=== PATIENT | female | born 1940 | race Caucasian/White ===

== ENCOUNTER 2019-10-14 07:41 | Observation (INO) | payer MEDICARE ==
[2019-10-14] MEDS ORDERED: ASPIRIN 81 MG PO STA (08:03)
[2019-10-14] MEDS ORDERED: NITROGLYCERIN SL TABS 0.4 MG TAB SUBLINGUAL STA (08:04)
--- NOTE | 2019-10-14 08:09 | ED ---
Chest Pain HPI - General Chief Complaint: Chest Pain Stated Complaint: Chest pain Time Seen by Provider: 10/14/19 07:50 Source: patient, family Mode of arrival: wheelchair Limitations: no limitations - History of Present Illness Initial Comments: This is a 78-year-old female with a history consistent only of hypothyroidism who states for the past 4 days she's been having intermittent chest pain states that 4 days ago she had retrosternal chest discomfort Sweeney heartburn was perhaps 7/10 severity with some radiation on the left arm that went away and then over the next subsequent 2 days she felt fairly well until this morning when she woke up and she had again midsternal and epigastric type burning pain 7/10 severity radiating down her left arm other symptoms reported with it no shortness of breath fevers chills nausea vomiting or sweats. She has no prior history of heart or lung disease no prior history of gastrointestinal disorders. She states she's currently 7/10 in severity at rest. MD Complaint: chest pain - Related Data Allergies Allergy/AdvReac Type Severity Reaction Status Date / Time No Known Allergies Allergy Verified 10/14/19 07:45 Review of Systems ROS Statement: Those systems with pertinent positive or pertinent negative responses have been documented in the HPI. ROS Other: All systems not noted in ROS Statement are negative. EKG Findings - EKG Results: EKG: interpreted by SHAHID, sinus rhythm (Sinus rhythm rate is 62 [place] interval 172 QRS 84 QT since QTC 382/387 sinus arrhythmia noted no acute ST-T wave changes) Past Medical History Past Medical History: Thyroid Disorder History of Any Multi-Drug Resistant Organisms: None Reported Past Surgical History: No Surgical Hx Reported Past Psychological History: No Psychological Hx Reported Smoking Status: Never smoker Past Alcohol Use History: Occasional Past Drug Use History: None Reported General Exam - General Exam Comments Initial Comments: This is a well-developed well-nourished awake alert oriented 3 female Limitations: no limitations General appearance: alert, anxious Head exam: Present: atraumatic, normocephalic, normal inspection Eye exam: Present: normal appearance, PERRL, EOMI. Absent: scleral icterus, conjunctival injection, periorbital swelling ENT exam: Present: normal exam, mucous membranes moist Neck exam: Present: normal inspection. Absent: tenderness, meningismus, lymphadenopathy Respiratory exam: Present: normal lung sounds bilaterally. Absent: respiratory distress, wheezes, rales, rhonchi, stridor Cardiovascular Exam: Present: regular rate, normal rhythm, normal heart sounds. Absent: systolic murmur, diastolic murmur, rubs, gallop, clicks GI/Abdominal exam: Present: soft, normal bowel sounds. Absent: distended, tenderness, guarding, rebound, rigid Extremities exam: Present: normal inspection, full ROM, normal capillary refill. Absent: tenderness, pedal edema, joint swelling, calf tenderness Back exam: Present: normal inspection Neurological exam: Present: alert, oriented X3, CN II-XII intact Psychiatric exam: Present: normal affect, normal mood Skin exam: Present: warm, dry, intact, normal color. Absent: rash Course Vital Signs 10/14/19 07:46 Temperature 97.8 F Pulse Rate 62 Respiratory 18 Rate Blood Pressure 147/67 O2 Sat by Pulse 97 Oximetry - Reevaluation(s) Reevaluation #1: 10/14/19 09:13 She get marked improvement with the nitroglycerin. Pain Chest Pain MDM - MDM I did review the imaging and report no acute findings. Patient does have medical evidence of angina she does have resolution after nitroglycerin she will be admitted I did discuss this with her family as well as Dr. Craig Critical Care Time Critical Care Time: Yes Disposition Clinical Impression: Unstable angina pectoris, Chest pain Disposition: [facility] Condition: Stable Referrals: Grupo Stearns MD [Primary Care Provider] - 1-2 days
[2019-10-14 08:22] LABS: Basophils # (A) 0.1 k/uL (0-0.2); Basophils % (A) 1 %; Eosinophils # (A) 0.2 k/uL (0-0.7); Eosinophils % (A) 3 %; HCT 40.7 % (34.0-46.0); HGB 13.3 gm/dL (11.4-16.0); Lymphocytes # (A) 1.5 k/uL (1.0-4.8); Lymphocytes % (A) 19 %; MCH 29.9 pg (25.0-35.0); MCHC 32.7 g/dL (31.0-37.0); MCV 91.5 fL (80.0-100.0); Mean Platelet Volume 7.3; Monocytes # (A) 0.5 k/uL (0-1.0); Monocytes % (A) 6 %; Neutrophils # (A) 5.6 k/uL (1.3-7.7); Neutrophils % (A) 70 %; Platelet Count 211 k/uL (150-450); RBC 4.44 m/uL (3.80-5.40); RDW 11.9 % (11.5-15.5); WBC 8.1 k/uL (3.8-10.6)
[2019-10-14 08:31] LABS: Albumin 4.1 g/dL (3.5-5.0); Calcium 8.9 mg/dL (8.4-10.2); Magnesium 2.2 mg/dL (1.6-2.3); Potassium 4.2 mmol/L (3.5-5.1); Total Bilirubin 0.7 mg/dL (0.2-1.3); Total Protein 6.9 g/dL (6.3-8.2)
--- NOTE | 2019-10-14 08:35 | XR ---
EXAMINATION TYPE: XR chest 2V DATE OF EXAM: 10/14/2019 HISTORY: Chest Pain. REFERENCE: NONE. FINDINGS: Lung volumes are prominent. There is opacity silhouetting the right heart border which may represent atelectasis in the right middle lobe. There is some atelectasis in the left lower lung. Ple ural spaces appear clear. IMPRESSION: 1. COPD. 2. I CANNOT EXCLUDE ATELECTASIS OF THE RIGHT MIDDLE LOBE.
[2019-10-14 08:38] LABS: INR 0.9 (<1.2); Partial Thromboplastin Time 22.7 sec (22.0-30.0); Prothrombin Time 9.6 sec (9.0-12.0)
[2019-10-14] MEDS ORDERED: SODIUM CHLORIDE 0.9% 500 ML 500 ML IV STA (09:02)
[2019-10-14] MEDS ORDERED: NITROGLYCERIN OINT 1 INCH/GM PACKET TOPICAL STA (09:02)
[2019-10-14] MEDS ORDERED: HEPARIN SODIUM,PORCINE 5,000 UNIT/ML 1 ML VIAL IV ONE (09:02)
[2019-10-14] MEDS ORDERED: HEPARIN SODIUM,PORCINE 5,000 UNIT/ML 1 ML VIAL IV PRN (09:02)
[2019-10-14] MEDS ORDERED: NITROGLYCERIN SL TABS 0.4 MG TAB SUBLINGUAL PRN (09:15)
[2019-10-14] MEDS ORDERED: HEPARIN SOD,PORK IN 0.45% NACL 25,000 UNIT in 0.45% NACL 1 250ML.BAG IV SCH (09:15)
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
[2019-10-14] MEDS ORDERED: ACETAMINOPHEN TAB 325 MG TAB PO STA (20:47)
[2019-10-14] MEDS ORDERED: ATORVASTATIN 40 MG TAB PO SCH (21:00)
[2019-10-15] MEDS ORDERED: AMINOPHYLLINE 500 MG/20 ML VIAL IV PRN (08:17)
[2019-10-15] MEDS ORDERED: DIPYRIDAMOLE IV ONE (08:17)
[2019-10-15] MEDS ORDERED: CAFFEINE CITRATE 60 MG/3 ML VIAL IV PRN (08:17)
[2019-10-15] MEDS ORDERED: SODIUM CHLORIDE 0.9% IV ONE (08:17)
[2019-10-15 08:37] LABS: Basophils % (A) 1 %; Eosinophils # (A) 0.2 k/uL (0-0.7); Eosinophils % (A) 2 %; HCT 38.9 % (34.0-46.0); HGB 12.3 gm/dL (11.4-16.0); Lymphocytes # (A) 2.1 k/uL (1.0-4.8); Lymphocytes % (A) 32 %; MCH 29.4 pg (25.0-35.0); MCHC 31.6 g/dL (31.0-37.0); MCV 92.9 fL (80.0-100.0); Mean Platelet Volume 7.5; Monocytes # (A) 0.4 k/uL (0-1.0); Monocytes % (A) 6 %; Neutrophils # (A) 3.7 k/uL (1.3-7.7); Neutrophils % (A) 57 %; Platelet Count 206 k/uL (150-450); RBC 4.18 m/uL (3.80-5.40); RDW 11.9 % (11.5-15.5); WBC 6.6 k/uL (3.8-10.6)
[2019-10-15] MEDS ORDERED: FAMOTIDINE 20 MG TAB PO SCH (09:00)
[2019-10-15] MEDS ORDERED: ASPIRIN 325 MG TAB PO SCH (09:00)
[2019-10-15 09:13] LABS: Cholesterol 102 mg/dL (<200); HDL Cholesterol 54 mg/dL (40-60); LDL Cholesterol,Calculated 32 mg/dL (0-99); Triglycerides 78 mg/dL (<150)
--- NOTE | 2019-10-15 09:51 | P.PN ---
Subjective This is a pleasant 79-year-old female past medical history significant for arthritis and hypothyroidism. She has seen and examined resting comfortably in bed with family at the bedside. She has had no further symptoms of chest discomfort. She denies shortness of breath, dizziness or palpitations. Blood pressure 127/67 heart rate 60 afebrile maintaining oxygen saturation on room air. Laboratory data reviewed, CBC unremarkable, cardiac enzymes negative 3, LDL 32. Currently maintained on heparin infusion, atorvastatin 40 mg daily and aspirin 325 mg daily. GENERAL: Well-appearing, well-nourished and in no acute distress. NECK: Supple without JVD or thyromegaly. LUNGS: Breath sounds clear to auscultation bilaterally. Respiration equal and unlabored. No wheezes, rales or rhonchi. HEART: Regular rate and rhythm without murmurs, rubs or gallops. S1 and S2 heard. EXTREMITIES: Normal range of motion, no edema. No clubbing or cyanosis. Peripheral pulses intact. ASSESSMENT Chest pain, atypical. An acute coronary event has been ruled out. Hypothyroidism PLAN An acute event has been ruled out. Decrease aspirin to 81 mg daily. Discontinue heparin infusion. Proceed with echocardiogram and persantine stress test as previously discussed. If stress test is abnormal we will consider coronary angiography. Nurse Practitioner note has been reviewed, I agree with a documented findings and plan of care. Patient was seen and examined. Objective - Vital Signs Vital signs: Vital Signs Temp 97.4 F L 10/15/19 07:25 Pulse 60 10/15/19 08:00 Resp 18 10/15/19 08:00 BP 127/67 10/15/19 07:25 Pulse Ox 98 10/15/19 07:25 Intake & Output 10/14/19 10/15/19 10/15/19 18:59 06:59 18:59 Intake Total 541.174 Balance 541.174 Weight 55.792 kg 62 kg Intake: Amount of Fluid Infused ( 500 ml) Intake, IV Titration 41.174 Amount Heparin Sod,Pork in 0.45% 41.174 NaCl 25,000 unit In 0.45 % NaCl 1 250ml.bag @ 12 UNITS/KG/HR 6.695 mls/hr IV .Q24H SOREN Rx#: [id number] Other: Voiding Method Toilet Toilet Toilet # Voids 2 1 - Labs CBC & Chem 7: 02/03/20 07:52 10/14/19 08:06 Labs: Abnormal Lab Results - Last 24 Hours (Table) 10/14/19 10/15/19 Range/Units 14:49 07:52 APTT 52.0 H 38.5 H (22.0-30.0) sec
[2019-10-15] MEDS ORDERED: AMINOPHYLLINE 250 MG/10 ML VIAL IV ONE (11:35)
[2019-10-15 12:16] VITALS: BP 155/67; PULSE 63; RESP 17; TEMP 97.6
--- NOTE | 2019-10-15 12:40 | EST ---
EXERCISE STRESS AGE: 79 SEX: F HT: 66" WT: 136 PROTOCOL: Persantine Cardiolite Stress test HEART RATE REST: 59 BLOOD PRESSURE REST: 158/90 MAXIMUM HEART RATE ACHIEVED: 92 MAXIMUM BLOOD PRESSURE: 168/76 85% MPHR: 120 100% MPHR: 141 INDICATIONS: Chest pain. CLINICAL INFORMATION: Baseline EKG revealed normal sinus rhythm without significant ST-T changes. With Persantine administration, the patient did not have any significant symptoms. Heart rate changed from 59-92 beats per minute, blood pressure changed from 150/90 to 168/76, and came back to baseline. There were no significant ST-segment changes to indicate ischemia. By EKG criteria, this is an unremarkable Lexiscan stress test. The nuclear scan results which are more pertinent will be reported by the radiologist. SELINA / KOFFIN: [id number] /
--- NOTE | 2019-10-15 13:24 | NM ---
EXAMINATION TYPE: NM stress persantine cardiolit DATE OF EXAM: 10/15/2019 COMPARISON: NONE HISTORY: Chest pain TECHNIQUE: After the intravenous administration of 10.56 mCi Tc 99m Sestamibi - Cardiolite resting S PECT images acquired 55 minutes post injection. The patient received 35.3 mg Persantine, 26.4 mCi Tc 99m Sestamibi - Stress images obtained 45 minute s post injection FINDINGS: Review of stress and rest SPECT images demonstrates no distinct perfusion abnormality. Gated analysi s shows normal wall motion with an estimated left ventricular ejection fraction of 64 %. TID is calcu lated at 1.13. IMPRESSION: No scintigraphic evidence for reversible ischemia.
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
[2019-10-16] MEDS ORDERED: ASPIRIN 81 MG PO SCH (09:00)
--- NOTE | 2019-10-16 10:34 | ECHOF ---
Referral Reason:chest pain MEASUREMENTS -------- HEIGHT: 167.6 cm WEIGHT: 61.7 kg BP: 129/70 RVIDd: 3.1 cm (< 3.3) IVSd: 1.1 cm (0.6 - 1.1) LVIDd: 3.6 cm (3.9 - 5.3) LVPWd: 1.0 cm (0.6 - 1.1) IVSs: 1.3 cm LVIDs: 2.0 cm LVPWs: 1.5 cm LAESV Index (A-L): 25.03 ml/m Ao Diam: 2.6 cm (2.0 - 3.7) AV Cusp: 2.0 cm (1.5 - 2.6) LA Diam: 2.8 cm (2.7 - 3.8) MV EXCURSION: 13.874 mm (> 18.000) MV EF SLOPE: 103 mm/s (70 - 150) EPSS: 0.4 cm MV E Warren: 0.61 m/s MV DecT: 259 ms MV A Warren: 0.70 m/s MV E/A Ratio: 0.87 AR PHT: 518 ms RAP: 5.00 mmHg RVSP: 31.98 mmHg FINDINGS -------- Sinus rhythm. This was a technically good study. The left ventricular size is normal. There is borderline concentric left ventricular hypertrophy. Overall left ventricular systolic function is normal with, an EF between 55 - 60 %. The diastolic filling pattern is normal for the age of the patient 9.65. The right ventricle is normal in size. Normal LA size by volume 22+/-6 ml/m2. The right atrial size is normal. Mobile interatrial septum. The aortic valve is trileaflet and appears structurally normal. Trace to mild aortic regurgitation. There is no evidence of aortic stenosis. Mild mitral annular calcification present. Mild mitral regurgitation is present. Mild tricuspid regurgitation present. There is borderline pulmonary artery hypertension. The righ t ventricular systolic pressure, as measured by Doppler, is 31.98mmHg. There is no pulmonic regurgitation present. The aortic root size is normal. Normal inferior vena cava with normal inspiratory collapse consistent with estimated right atrial pre ssure of 5 mmHg. There is no pericardial effusion. CONCLUSIONS -------- 1. Sinus rhythm. 2. This was a technically good study. 3. The left ventricular size is normal. 4. There is borderline concentric left ventricular hypertrophy. 5. Overall left ventricular systolic function is normal with, an EF between 55 - 60 %. 6. The diastolic filling pattern is normal for the age of the patient 9.65 7. The right ventricle is normal in size. 8. Normal LA size by volume 22+/-6 ml/m2. 9. The right atrial size is normal. 10. Mobile interatrial septum. 11. The aortic valve is trileaflet and appears structurally normal. 12. Trace to mild aortic regurgitation. 13. There is no evidence of aortic stenosis. 14. Mild mitral annular calcification present. 15. Mild mitral regurgitation is present. 16. Mild tricuspid regurgitation present. 17. There is borderline pulmonary artery hypertension. 18. The right ventricular systolic pressure, as measured by Doppler, is 31.98mmHg. 19. There is no pulmonic regurgitation present. 20. The aortic root size is normal. 21. Normal inferior vena cava with normal inspiratory collapse consistent with estimated right atrial pressure of 5 mmHg. 22. There is no pericardial effusion. SEAM RUBBER: Marcia Waters RDCS
== END 2019-10-15 14:30 | disposition home or self-care (01) ==
LOC: EC 07:41 → 1SOBS 09:15
PROVIDERS: ADMIT Internal Medicine; ATTEND Internal Medicine
DX: I20.0 Unstable angina (principal); E03.9 Hypothyroidism, unspecified; M15.9 Polyosteoarthritis, unspecified; J44.9 Chronic obstructive pulmonary disease, unspecified; I08.1 Rheumatic disorders of both mitral and tricuspid valves; I27.20 Pulmonary hypertension, unspecified; Z87.828 Personal history of other (healed) physical injury and trauma; Z87.820 Personal history of traumatic brain injury; Z79.890 Hormone replacement therapy; Z79.899 Other long term (current) drug therapy; Z98.890 Other specified postprocedural states; Z87.891 Personal history of nicotine dependence; Z81.8 Family history of other mental and behavioral disorders; Z84.1 Family history of disorders of kidney and ureter
CPT/HCPCS: 93005 ×2; 96366 ×2; 96376; 96365; 99285; 36415; 93017; 93306; 83880; 80061; 80053; 82550; 83735; 84484; 85025 ×2; 85610; 85730 ×2; 71046; 78452; G0378 ×2; A9500; J1644 ×2; J1245; J0280

== ENCOUNTER → 2021-04-16 | Outpatient (CLI) | payer MEDICARE ==
--- NOTE | 2021-04-16 16:12 | ECHOS ---
STRESS ECHOCARDIOGRAM DATE OF SERVICE: 04/16/21 INDICATIONS: Chest pain. BASELINE HEART RATE: 65 BASELINE BLOOD PRESSURE: 141/56 MAXIMUM HEART RATE: 128 MAXIMUM BLOOD PRESSURE: 171/63 85% MPHR: 119 100% MPHR: 140 METS: 4.6 MAXIMUM STAGE REACHED: 1 TOTAL EXERCISE TIME: 3:14 CLINICAL INFORMATION: Baseline rhythm is a sinus mechanism, rate 65, multiple PACs. Baseline blood pressure 141/56 mmHg. The patient exercised on Foster protocol for 3 minutes 14 seconds reaching peak rate 128 beats per minute which is equal to 91% maximum predicted heart rate. Peak blood pressure 171/63 mmHg. Test was terminated secondary to fatigue. There was no chest pain. Electrocardiograph monitoring revealed no evidence of diagnostic ischemic ST deviation. FINDINGS: Baseline echocardiogram revealed normal wall motion. At peak exercise, there was normal wall motion augmentation with no hypokinesis or dyskinesis. CONCLUSION: 1. Decreased exercise tolerance with normal echocardiograph response to exercise. 2. Normal stress echocardiogram with no evidence of stress-induced ischemia. MMODL / IJN: [id number] /
== END | disposition home or self-care (01) ==
LOC: RADNMMAIN 08:59
PROVIDERS: ATTEND Internal Medicine Geriatric Medicine
DX: R07.9 Chest pain, unspecified (principal)
CPT/HCPCS: 93351